=== PATIENT | male | born 1950 | race Hispanic/Latino ===

== ENCOUNTER → 2018-04-11 | Outpatient (CLI) | payer BC, OTHER | END | disposition home or self-care (01) | LOC: SHCH 14:31 | PROVIDERS: ATTEND Internal Medicine Cardiovascular Disease | DX: R60.0 Localized edema (principal) | CPT/HCPCS: 93306 ==

== ENCOUNTER → 2018-12-29 | Outpatient (CLI) | payer OTHER ==
[~2018-12-29] MED LIST: MULT-1258 PO
== END | disposition home or self-care (01) ==
LOC: SHCH 11:03
PROVIDERS: ATTEND Internal Medicine Cardiovascular Disease
DX: I70.213 Atherosclerosis of native arteries of extremities with intermittent claudication, bilateral legs (principal)
CPT/HCPCS: 93922

== ENCOUNTER → 2020-10-21 | Outpatient (CLI) | payer OTHER | END | disposition home or self-care (01) | LOC: SHCH 09:17 | PROVIDERS: ATTEND Internal Medicine Cardiovascular Disease | DX: I34.0 Nonrheumatic mitral (valve) insufficiency (principal); I25.2 Old myocardial infarction | CPT/HCPCS: 93306; 93356 ==

== ENCOUNTER 2020-12-18 12:45 | Inpatient (IN) | payer OTHER ==
[2020-12-12 15:07] LABS: BASOPHILS % (AUTO) 0.8 % (0.0-5.0); EOSINOPHILS % (AUTO) 1.9 % (0.0-8.0); HEMATOCRIT 44.3 % (42-54); LYMPHOCYTES % (AUTO) 27.9 % (21.0-51.0); MEAN CORPUSCULAR HGB CONC 32.7 g/dL (32.0-36.0); MEAN CORPUSCULAR VOLUME 97.8 fL (79-99); MONOCYTES % (AUTO) 8.4 % (3.0-13.0); NEUTROPHILS % (AUTO) 60.7 % (40.0-77.0); PLATELET COUNT (AUTO) 154 K/uL (130-400); RED BLOOD CELL COUNT(AUTO) 4.53 MIL/uL (4.50-6.20); RED CELL DISTRIBUTION WIDTH 13.1 % (11.0-15.5); WHITE BLOOD COUNT (AUTO) 9.4 K/uL (4.8-10.8)
[2020-12-12 15:14] LABS: APPEARANCE,URINE Clear (CLEAR); BILIRUBIN,URINE Negative (NEGATIVE); COLOR,URINE Yellow (YELLOW); GLUCOSE, URINE (UA) Negative (NEGATIVE); KETONES,URINE Negative (NEGATIVE); LEUKOCYTE ESTERASE ,URINE Negative (NEGATIVE); NITRATE,URINE Negative (NEGATIVE); OCCULT BLOOD,URINE Negative (NEGATIVE); PH,URINE 7.5 (5.0-8.0); PROTEIN,URINE Negative (NEGATIVE)
[2020-12-12 15:16] LABS: CREATININE 1.3 mg/dL (0.5-1.5); POTASSIUM 4.9 mmol/L (3.5-5.1)
[2020-12-12 15:19] LABS: INR 1.03 (0.85-1.15); PROTHROMBIN TIME 11.2 SEC (9.6-11.6)
[~2020-12-18] VITALS: Ht 180.3 cm; Wt 103.2 kg
[2020-12-18] VITALS (10 sets, daily range): BP systolic 111–152; BP diastolic 59–80
[~2020-12-18 12:45] MED LIST changes: +ASPI-1443 PO; +ATOR40TA71 PO; +CARV6.25 PO; +FLUT1BLS15 IH; +HYDR25TA PO; +LOSA100T58 PO; +METO-408 PO
[2020-12-18] MEDS ORDERED: 0.9%NACL 1000ML 1,000 ML IV ONE (14:11)
[2020-12-18] MEDS ORDERED: IOHEXOL-350 50ML VIAL IV ONE (14:42)
[2020-12-18] MEDS ORDERED: LIDOCAINE HCL 400MG/20ML VIAL ONE (14:42)
[2020-12-18] MEDS ORDERED: IOHEXOL 350 MG/ML 100ML INFUS..BTL IV ONE (14:42)
[2020-12-18] MEDS ORDERED: NITROGLYCERIN 2 MG VIAL IV ONE (14:42)
[2020-12-18] MEDS ORDERED: SODIUM BICARB 50MEQ 50ML VIAL 50 ML ONE (14:52)
[2020-12-18] MEDS ORDERED: FUROSEMIDE 20MG VIAL ONE (15:51)
[2020-12-18] MEDS ORDERED: ACETAMINOPHEN 325 MG TAB PO PRN ×2 (16:00)
[2020-12-18] MEDS ORDERED: NITROGLYCERIN 0.4 MG SL TAB SL PRN (16:00)
[2020-12-18] MEDS ORDERED: BUMETANIDE 2.5MG/10ML VIAL IV SCH (16:00)
[2020-12-18] MEDS: NITROGLYCERIN 1GM OINT 1 INCH/1GM TD SCH ×2 (16:00→23:43)
[2020-12-18] MEDS ORDERED: ONDANSETRON 4MG INJ IV PRN (16:00)
[2020-12-18 16:12] LABS: ABG BASE EXCESS 1.3 mmol/L (-2.0-3.0); ABG OXYGEN SATURATION 95.2 % (95.0-99.0); ABG PCO2 41 mmHg (35-48)
[2020-12-18 17:12] LABS: BASOPHILS % (AUTO) 0.7 % (0.0-5.0); EOSINOPHILS % (AUTO) 1.2 % (0.0-8.0); LYMPHOCYTES % (AUTO) 15.6 % (21.0-51.0); MEAN CORPUSCULAR HGB CONC 33.7 g/dL (32.0-36.0); MONOCYTES % (AUTO) 5.1 % (3.0-13.0); NEUTROPHILS % (AUTO) 76.9 % (40.0-77.0); PLATELET COUNT (AUTO) 157 K/uL (130-400); RED BLOOD CELL COUNT(AUTO) 4.84 MIL/uL (4.50-6.20); RED CELL DISTRIBUTION WIDTH 12.9 % (11.0-15.5); WHITE BLOOD COUNT (AUTO) 12.1 K/uL (4.8-10.8)
[2020-12-18 17:36] LABS: B-TYPE NATRIURETIC PEPTIDE 123 pg/mL (0-100)
[2020-12-18 17:44] LABS: ALBUMIN 4.1 g/dL (3.5-5.0); BILIRUBIN,TOTAL 0.8 mg/dL (0.2-1.0); CREATININE 1.2 mg/dL (0.5-1.5); POTASSIUM 4.2 mmol/L (3.5-5.1); THYROID STIMULATING HORMONE 1.52 uIU/mL (0.36-3.74)
[2020-12-18] MEDS ORDERED: BUMETANIDE IV SCH (18:30)
[2020-12-18] MEDS: FAMOTIDINE 20MG VIAL IV SCH (20:29)
[2020-12-18] MEDS ORDERED: METOPROLOL TARTRATE 25 MG TAB PO SCH (21:00)
[2020-12-19] VITALS: BP 128/66
[2020-12-19 00:19] LABS: APPEARANCE,URINE Clear (CLEAR); BILIRUBIN,URINE Negative (NEGATIVE); COLOR,URINE Yellow (YELLOW); GLUCOSE, URINE (UA) Negative (NEGATIVE); KETONES,URINE Negative (NEGATIVE); LEUKOCYTE ESTERASE ,URINE Trace (NEGATIVE); NITRATE,URINE Negative (NEGATIVE); OCCULT BLOOD,URINE Large (NEGATIVE); PROTEIN,URINE Trace mg/dL (NEGATIVE); UROBILINOGEN,URINE 0.2 mg/dL (0.2-1.0)
[2020-12-19 00:33] LABS: BACTERIA,URINE None Seen /HPF (None Seen); WBC,URINE 0-1 /HPF (0-1)
[2020-12-19 00:34] LABS: SQUAMOUS EPITHELIAL CELL,UR Rare /HPF (0-2)
[2020-12-19] MEDS ORDERED: PHARMACY COMMUNICATION MISC SCH ×2 (03:00)
[2020-12-19 04:00] VITALS: BP 98/64
[2020-12-19 07:53] VITALS: BP 106/63
[2020-12-19 07:53] LABS: CREATININE 1.7 mg/dL (0.5-1.5); POTASSIUM 4.1 mmol/L (3.5-5.1)
[2020-12-19] MEDS: NITROGLYCERIN 1GM OINT 1 INCH/1GM TD SCH ×2 (08:00→16:51)
[2020-12-19] MEDS ORDERED: HYDROCHLOROTHIAZIDE 25 MG TABLET PO SCH (09:00)
[2020-12-19] MEDS ORDERED: METOPROLOL SUCCINATE 50 MG TAB.SR.24H PO SCH (09:00)
[2020-12-19] MEDS: LOSARTAN 50 MG TABLET PO SCH (09:00)
[2020-12-19] MEDS: FAMOTIDINE 20MG VIAL IV SCH ×2 (09:06→19:29)
[2020-12-19] MEDS: ATORVASTATIN 40 MG TABLET PO SCH (09:14)
[2020-12-19] MEDS: ASPIRIN 81 MG EC TAB PO SCH (09:14)
[2020-12-19] MEDS: MULTIVITAMIN TABLET PO SCH (09:14)
[2020-12-19] MEDS: ENOXAPARIN SODIUM 40 MG/0.4 ML SYRINGE SQ SCH (09:17)
[2020-12-19] MEDS: CARVEDILOL 6.25 MG TABLET PO SCH ×2 (09:42→19:35)
[2020-12-19 11:38] VITALS: BP 102/54
[2020-12-19 15:51] VITALS: BP 110/56
[2020-12-19 19:00] VITALS: BP 114/62
[2020-12-20] VITALS (10 sets, daily range): BP systolic 108–142; BP diastolic 58–75
[2020-12-20] MEDS: NITROGLYCERIN 1GM OINT 1 INCH/1GM TD SCH ×4 (00:25→23:44)
[2020-12-20 04:36] LABS: INR 1.05 (0.85-1.15); PROTHROMBIN TIME 11.4 SEC (9.6-11.6)
[2020-12-20 04:37] LABS: PARTIAL THROMBOPLASTIN TIME 28.2 SEC (26.3-35.5)
[2020-12-20 04:42] LABS: CREATININE 2.2 mg/dL (0.5-1.5); POTASSIUM 3.8 mmol/L (3.5-5.1)
[2020-12-20] MEDS: ATORVASTATIN 40 MG TABLET PO SCH (08:54)
[2020-12-20] MEDS: CARVEDILOL 6.25 MG TABLET PO SCH ×2 (08:55→21:18)
[2020-12-20] MEDS: LOSARTAN 50 MG TABLET PO SCH (08:55)
[2020-12-20] MEDS: MULTIVITAMIN TABLET PO SCH (08:55)
[2020-12-20] MEDS: FLUTICASONE IH SCH (08:56)
[2020-12-20] MEDS: UMECLIDIN IH SCH (08:56)
[2020-12-20] MEDS: VILANTER IH SCH (08:56)
[2020-12-20] MEDS: [UNRECOGNIZED DRUG - OTHER] IH SCH (08:56)
[2020-12-20] MEDS: ASPIRIN 81 MG EC TAB PO SCH (08:56)
[2020-12-20] MEDS: ENOXAPARIN SODIUM 40 MG/0.4 ML SYRINGE SQ SCH (08:57)
[2020-12-20] MEDS: FAMOTIDINE 20MG VIAL IV SCH ×2 (08:57→19:59)
[2020-12-20] MEDS ORDERED: LIDOCAINE HCL 400MG/20ML VIAL ONE (17:04)
[2020-12-20] MEDS ORDERED: SODIUM BICARB 50MEQ 50ML VIAL 50 ML ONE (17:04)
[2020-12-20] MEDS ORDERED: NITROGLYCERIN 2 MG VIAL IV ONE (17:04)
[2020-12-20] MEDS ORDERED: FENTANYL CITRATE PF 50 MCG/1 ML 2ML VIAL ONE (17:04)
[2020-12-20] MEDS ORDERED: MIDAZOLAM HCL 1 MG/ML 2ML VIAL ONE (17:04)
[2020-12-20] MEDS ORDERED: 0.9% NACL 500ML IV.SOLN 500 ML IV SCH (18:30)
[2020-12-21] VITALS (7 sets, daily range): BP systolic 110–140; BP diastolic 57–80
[2020-12-21 06:09] LABS: POTASSIUM 4.1 mmol/L (3.5-5.1)
[2020-12-21] MEDS: NITROGLYCERIN 1GM OINT 1 INCH/1GM TD SCH ×2 (08:55→16:00)
[2020-12-21] MEDS: UMECLIDIN IH SCH (08:56)
[2020-12-21] MEDS: [UNRECOGNIZED DRUG - OTHER] IH SCH (08:56)
[2020-12-21] MEDS: FAMOTIDINE 20MG VIAL IV SCH ×2 (08:56→20:32)
[2020-12-21] MEDS: FLUTICASONE IH SCH (08:56)
[2020-12-21] MEDS: VILANTER IH SCH (08:56)
[2020-12-21] MEDS: ASPIRIN 81 MG EC TAB PO SCH (08:57)
[2020-12-21] MEDS: LOSARTAN 50 MG TABLET PO SCH (08:57)
[2020-12-21] MEDS: MULTIVITAMIN TABLET PO SCH (08:57)
[2020-12-21] MEDS: CARVEDILOL 6.25 MG TABLET PO SCH ×2 (08:58→20:32)
[2020-12-21] MEDS: ATORVASTATIN 40 MG TABLET PO SCH (08:58)
[2020-12-21] MEDS: ENOXAPARIN SODIUM 40 MG/0.4 ML SYRINGE SQ SCH (09:10)
[2020-12-21 16:48] LABS: BILIRUBIN,URINE Negative (NEGATIVE); COLOR,URINE Dark Yellow (YELLOW); GLUCOSE, URINE (UA) Negative (NEGATIVE); KETONES,URINE Trace mg/dL (NEGATIVE); LEUKOCYTE ESTERASE ,URINE Moderate (NEGATIVE); NITRATE,URINE Negative (NEGATIVE); OCCULT BLOOD,URINE Large (NEGATIVE); PROTEIN,URINE POS 1+ mg/dL (NEGATIVE)
[2020-12-21 16:49] LABS: APPEARANCE,URINE CLOUDY (CLEAR)
[2020-12-21 16:58] LABS: BACTERIA,URINE Few /HPF (None Seen); RBC,URINE 26-50 /HPF (0-1)
[2020-12-21 16:59] LABS: SQUAMOUS EPITHELIAL CELL,UR Few /HPF (0-2)
[2020-12-21 17:00] LABS: HYALINE CASTS, URINE 0-1 /LPF (0-1 /LPF)
[2020-12-21] MEDS: FUROSEMIDE 20 MG TABLET PO SCH (17:00)
[2020-12-21] MEDS ORDERED: CEFTRIAXONE 1G VIAL ONE (18:18)
[2020-12-21] MEDS: CEFTRIAXONE 1G VIAL IVP SCH (18:44)
[2020-12-22] MEDS: NITROGLYCERIN 1GM OINT 1 INCH/1GM TD SCH ×4 (00:19→23:01)
[2020-12-22 04:53] VITALS: BP 111/52
[2020-12-22 05:22] LABS: POTASSIUM 3.7 mmol/L (3.5-5.1)
[2020-12-22 08:00] VITALS: BP 104/64
[2020-12-22] MEDS: FAMOTIDINE 20MG VIAL IV SCH ×2 (09:11→20:06)
[2020-12-22] MEDS: ENOXAPARIN SODIUM 40 MG/0.4 ML SYRINGE SQ SCH (09:11)
[2020-12-22] MEDS: LOSARTAN 50 MG TABLET PO SCH (09:13)
[2020-12-22] MEDS: FUROSEMIDE 20 MG TABLET PO SCH (09:14)
[2020-12-22] MEDS: MULTIVITAMIN TABLET PO SCH (09:14)
[2020-12-22] MEDS: ASPIRIN 81 MG EC TAB PO SCH (09:14)
[2020-12-22] MEDS: ATORVASTATIN 40 MG TABLET PO SCH (09:14)
[2020-12-22] MEDS: CARVEDILOL 6.25 MG TABLET PO SCH ×2 (09:15→20:07)
[2020-12-22] MEDS: NEOMY SULF/BACITRA/POLYMYXIN B 1 EACH PACKET TP SCH (09:17)
[2020-12-22] MEDS: VILANTER IH SCH (09:20)
[2020-12-22] MEDS: UMECLIDIN IH SCH (09:20)
[2020-12-22] MEDS: FLUTICASONE IH SCH (09:20)
[2020-12-22] MEDS: [UNRECOGNIZED DRUG - OTHER] IH SCH (09:20)
[2020-12-22 12:00] VITALS: BP 120/61
[2020-12-22 16:00] VITALS: BP 137/73
[2020-12-22 19:48] VITALS: BP 110/49
[2020-12-22] MEDS: CEFTRIAXONE 1G VIAL IVP SCH (20:06)
[2020-12-22] MEDS ORDERED: BISACODYL 10 MG SUPP.RECT RC ONE ×2 (23:24→23:30)
[2020-12-23] VITALS (8 sets, daily range): BP systolic 105–131; BP diastolic 54–77
[2020-12-23 04:11] LABS: BASOPHILS % (AUTO) 0.4 % (0.0-5.0); EOSINOPHILS % (AUTO) 0.4 % (0.0-8.0); HEMATOCRIT 39.7 % (42-54); MEAN CORPUSCULAR HEMOGLOBIN 31.7 pg (27.0-33.0); MEAN CORPUSCULAR HGB CONC 33.5 g/dL (32.0-36.0); MEAN CORPUSCULAR VOLUME 94.7 fL (79-99); NEUTROPHILS % (AUTO) 77.6 % (40.0-77.0); PLATELET COUNT (AUTO) 118 K/uL (130-400); RED BLOOD CELL COUNT(AUTO) 4.19 MIL/uL (4.50-6.20); RED CELL DISTRIBUTION WIDTH 12.6 % (11.0-15.5); WHITE BLOOD COUNT (AUTO) 15.7 K/uL (4.8-10.8)
[2020-12-23 04:30] LABS: CREATININE 1.7 mg/dL (0.5-1.5); POTASSIUM 3.6 mmol/L (3.5-5.1)
[2020-12-23] MEDS: FAMOTIDINE 20MG VIAL IV SCH ×2 (09:28→19:52)
[2020-12-23] MEDS: ENOXAPARIN SODIUM 40 MG/0.4 ML SYRINGE SQ SCH (09:28)
[2020-12-23] MEDS: ASPIRIN 81 MG EC TAB PO SCH (09:33)
[2020-12-23] MEDS: FUROSEMIDE 20 MG TABLET PO SCH (09:34)
[2020-12-23] MEDS: MULTIVITAMIN TABLET PO SCH (09:34)
[2020-12-23] MEDS: LOSARTAN 50 MG TABLET PO SCH (09:35)
[2020-12-23] MEDS: ATORVASTATIN 40 MG TABLET PO SCH (09:35)
[2020-12-23] MEDS: CARVEDILOL 6.25 MG TABLET PO SCH ×2 (09:37→19:53)
[2020-12-23] MEDS: UMECLIDIN IH SCH (09:53)
[2020-12-23] MEDS: VILANTER IH SCH (09:53)
[2020-12-23] MEDS: [UNRECOGNIZED DRUG - OTHER] IH SCH (09:53)
[2020-12-23] MEDS: FLUTICASONE IH SCH (09:53)
[2020-12-23] MEDS: NEOMY SULF/BACITRA/POLYMYXIN B 1 EACH PACKET TP SCH (09:54)
[2020-12-23] MEDS: CEFTRIAXONE 1G VIAL IVP SCH (19:53)
[2020-12-23] MEDS ORDERED: SENNOSIDES 8.6 MG TABLET ONE (20:07)
[2020-12-23] MEDS ORDERED: SENNOSIDES 8.6 MG TABLET PO PRN (20:30)
[2020-12-24 03:41] LABS: BASOPHILS % (AUTO) 0.5 % (0.0-5.0); EOSINOPHILS % (AUTO) 2.2 % (0.0-8.0); HEMATOCRIT 37.4 % (42-54); LYMPHOCYTES % (AUTO) 19.1 % (21.0-51.0); MEAN CORPUSCULAR HEMOGLOBIN 32.2 pg (27.0-33.0); MEAN CORPUSCULAR VOLUME 94.9 fL (79-99); MONOCYTES % (AUTO) 9.2 % (3.0-13.0); NEUTROPHILS % (AUTO) 68.5 % (40.0-77.0); PLATELET COUNT (AUTO) 124 K/uL (130-400); RED BLOOD CELL COUNT(AUTO) 3.94 MIL/uL (4.50-6.20); RED CELL DISTRIBUTION WIDTH 12.5 % (11.0-15.5); WHITE BLOOD COUNT (AUTO) 10.7 K/uL (4.8-10.8)
[2020-12-24 03:42] VITALS: BP 113/63
[2020-12-24 03:57] LABS: CREATININE 1.7 mg/dL (0.5-1.5); POTASSIUM 3.8 mmol/L (3.5-5.1)
[2020-12-24 07:30] VITALS: BP 114/69
[2020-12-24] MEDS: ENOXAPARIN SODIUM 40 MG/0.4 ML SYRINGE SQ SCH (09:08)
[2020-12-24] MEDS: MULTIVITAMIN TABLET PO SCH (09:08)
[2020-12-24] MEDS: FAMOTIDINE 20MG VIAL IV SCH ×2 (09:08→21:36)
[2020-12-24] MEDS: ATORVASTATIN 40 MG TABLET PO SCH (09:08)
[2020-12-24] MEDS: ASPIRIN 81 MG EC TAB PO SCH (09:08)
[2020-12-24] MEDS: FUROSEMIDE 20 MG TABLET PO SCH (09:09)
[2020-12-24] MEDS: CARVEDILOL 6.25 MG TABLET PO SCH ×2 (09:09→21:36)
[2020-12-24] MEDS: LOSARTAN 50 MG TABLET PO SCH (09:09)
[2020-12-24] MEDS: NEOMY SULF/BACITRA/POLYMYXIN B 1 EACH PACKET TP SCH (09:10)
[2020-12-24] MEDS ORDERED: FURO20TA6 PO (09:11)
[2020-12-24] MEDS ORDERED: CEFT1VIA14 IVP (09:11)
[2020-12-24] MEDS ORDERED: LOSA50TA2 PO (09:11)
[2020-12-24] MEDS: VILANTER IH SCH (09:17)
[2020-12-24] MEDS: [UNRECOGNIZED DRUG - OTHER] IH SCH (09:17)
[2020-12-24] MEDS: UMECLIDIN IH SCH (09:17)
[2020-12-24] MEDS: FLUTICASONE IH SCH (09:17)
[2020-12-24 11:00] VITALS: BP 117/58
[2020-12-24 15:30] VITALS: BP 120/61
[2020-12-24] MEDS ORDERED: IPRATROPIUM/ALBUTEROL SULFATE 3 ML SOLUTION IH PRN (16:30)
[2020-12-24 20:32] VITALS: BP 116/69
[2020-12-24 21:36] VITALS: BP 116/69
[2020-12-24] MEDS: CEFTRIAXONE 1G VIAL IVP SCH (21:36)
== END 2020-12-24 22:12 | DRG 286 ==
LOC: DAH 12:45 → DAHIP 12:46 → DAH 12:46 → 4BH 18:12
PROVIDERS: ADMIT Internal Medicine; ATTEND Internal Medicine
PROC: 5A09357 Assistance with Respiratory Ventilation, Less than 24 Consecutive Hours, Continuous Positive Airway Pressure (ICD-10-PCS; 2020-12-18)
PROC: 5A09357 Assistance with Respiratory Ventilation, Less than 24 Consecutive Hours, Continuous Positive Airway Pressure (ICD-10-PCS; 2020-12-19)
PROC: 4A023N6 Measurement of Cardiac Sampling and Pressure, Right Heart, Percutaneous Approach (ICD-10-PCS; principal; 2020-12-20)
PROC: 5A09357 Assistance with Respiratory Ventilation, Less than 24 Consecutive Hours, Continuous Positive Airway Pressure (ICD-10-PCS; 2020-12-20)
PROC: 5A09357 Assistance with Respiratory Ventilation, Less than 24 Consecutive Hours, Continuous Positive Airway Pressure (ICD-10-PCS; 2020-12-21)
PROC: 5A09357 Assistance with Respiratory Ventilation, Less than 24 Consecutive Hours, Continuous Positive Airway Pressure (ICD-10-PCS; 2020-12-22)
PROC: 5A09357 Assistance with Respiratory Ventilation, Less than 24 Consecutive Hours, Continuous Positive Airway Pressure (ICD-10-PCS; 2020-12-23)
PROC: 5A09357 Assistance with Respiratory Ventilation, Less than 24 Consecutive Hours, Continuous Positive Airway Pressure (ICD-10-PCS; 2020-12-24)
DX: I13.0 Hypertensive heart and chronic kidney disease with heart failure and stage 1 through stage 4 chronic kidney disease, or unspecified chronic kidney disease (principal); I50.33 Acute on chronic diastolic (congestive) heart failure; N17.0 Acute kidney failure with tubular necrosis; N39.0 Urinary tract infection, site not specified; E78.5 Hyperlipidemia, unspecified; N18.9 Chronic kidney disease, unspecified; J44.9 Chronic obstructive pulmonary disease, unspecified; I25.10 Atherosclerotic heart disease of native coronary artery without angina pectoris; E86.0 Dehydration; Z95.1 Presence of aortocoronary bypass graft; I25.2 Old myocardial infarction
CPT/HCPCS: 36415; 36600; 71045; 71046; 80048; 80053; 81001; 81003; 82550; 82803; 83036; 83874; 83880; 84145; 84443; 84484; 85025; 85378; 85610; 85730; 87040; 87071; 87077; 87088; 87186; 87205; 87804; 92610; 93005; 93451; 94640; 97039; A4606; C1894; G0378; J0696; J1644; J1650; J1940; J2250; J2405; J3010; J3490; J7030; J7040; Q9967

== ENCOUNTER 2021-01-29 11:16 | Observation (INO) | payer OTHER ==
[2021-01-28 09:15] LABS: BASOPHILS % (AUTO) 0.7 % (0.0-5.0); EOSINOPHILS % (AUTO) 1.2 % (0.0-8.0); HEMATOCRIT 41.5 % (42-54); LYMPHOCYTES % (AUTO) 17.6 % (21.0-51.0); MEAN CORPUSCULAR HEMOGLOBIN 31.7 pg (27.0-33.0); MEAN CORPUSCULAR HGB CONC 33.3 g/dL (32.0-36.0); MEAN CORPUSCULAR VOLUME 95.4 fL (79-99); MONOCYTES % (AUTO) 6.4 % (3.0-13.0); NEUTROPHILS % (AUTO) 73.6 % (40.0-77.0); PLATELET COUNT (AUTO) 160 K/uL (130-400); RED BLOOD CELL COUNT(AUTO) 4.35 MIL/uL (4.50-6.20); WHITE BLOOD COUNT (AUTO) 10.6 K/uL (4.8-10.8)
[2021-01-28 09:20] LABS: APPEARANCE,URINE Clear (CLEAR); BILIRUBIN,URINE Negative (NEGATIVE); COLOR,URINE Yellow (YELLOW); GLUCOSE, URINE (UA) Negative (NEGATIVE); KETONES,URINE Negative (NEGATIVE); LEUKOCYTE ESTERASE ,URINE Negative (NEGATIVE); NITRATE,URINE Negative (NEGATIVE); OCCULT BLOOD,URINE Negative (NEGATIVE); PROTEIN,URINE Negative (NEGATIVE)
[2021-01-28 09:24] LABS: CREATININE 1.2 mg/dL (0.5-1.5); POTASSIUM 4.9 mmol/L (3.5-5.1)
[2021-01-28 09:25] LABS: INR 1.05 (0.85-1.15); PROTHROMBIN TIME 11.4 SEC (9.6-11.6)
[2021-01-28 09:26] LABS: PARTIAL THROMBOPLASTIN TIME 28.9 SEC (26.3-35.5)
[2021-01-28 15:41] VITALS: BP 150/78
[~2021-01-29] VITALS: Ht 180.3 cm; Wt 99.8 kg
[2021-01-29] VITALS (7 sets, daily range): BP systolic 122–157; BP diastolic 63–88
[~2021-01-29 11:16] MED LIST changes: -FLUT1BLS15 IH; +FURO20TA6 PO; -HYDR25TA PO; -LOSA100T58 PO; +LOSA50TA2 PO; -METO-408 PO
[2021-01-29] MEDS ORDERED: 0.9%NACL 1000ML 1,000 ML IV ONE (11:22)
[2021-01-29] MEDS ORDERED: SODIUM BICARB 50MEQ 50ML VIAL 50 ML ONE (19:06)
[2021-01-29] MEDS ORDERED: NICARDIPINE 25MG INJ IV ONE (19:06)
[2021-01-29] MEDS ORDERED: IOHEXOL 350 MG/ML 100ML INFUS..BTL IV ONE (19:06)
[2021-01-29] MEDS ORDERED: NITROGLYCERIN 2 MG VIAL IV ONE (19:06)
[2021-01-29] MEDS ORDERED: BIVALIRUDIN 250 MG/VIAL IV ONE (19:06)
[2021-01-29] MEDS ORDERED: IOHEXOL-350 50ML VIAL IV ONE (19:06)
[2021-01-29] MEDS ORDERED: HEPARIN 10,000 UNIT/10ML (1,000 UNIT/ML) VIAL ONE (19:06)
[2021-01-29] MEDS ORDERED: LIDOCAINE HCL 400MG/20ML VIAL ONE (19:07)
[2021-01-29] MEDS ORDERED: MIDAZOLAM HCL 1 MG/ML 2ML VIAL ONE (19:45)
[2021-01-29] MEDS ORDERED: FENTANYL CITRATE PF 50 MCG/1 ML 2ML VIAL ONE (19:46)
[2021-01-29] MEDS ORDERED: LABETALOL 20MG VIAL IV ONE (20:30)
[2021-01-29] MEDS ORDERED: ONDANSETRON 4MG INJ ONE (20:42)
[2021-01-29] MEDS ORDERED: 0.9%NACL 1000ML 1,000 ML IV SCH (21:00)
[2021-01-29] MEDS: CARVEDILOL 6.25 MG TABLET PO SCH (22:31)
[2021-01-30 00:15] VITALS: BP 132/76
[2021-01-30 04:11] VITALS: BP 138/74
[2021-01-30 04:16] LABS: HEMATOCRIT 40.8 % (42-54); MEAN CORPUSCULAR HEMOGLOBIN 31.4 pg (27.0-33.0); MEAN CORPUSCULAR HGB CONC 33.6 g/dL (32.0-36.0); MEAN CORPUSCULAR VOLUME 93.4 fL (79-99); RED BLOOD CELL COUNT(AUTO) 4.37 MIL/uL (4.50-6.20); RED CELL DISTRIBUTION WIDTH 13.1 % (11.0-15.5); WHITE BLOOD COUNT (AUTO) 11.4 K/uL (4.8-10.8)
[2021-01-30 04:24] LABS: CREATININE 1.3 mg/dL (0.5-1.5)
[2021-01-30 08:08] VITALS: BP 140/79
[2021-01-30 08:19] VITALS: BP 140/79
[2021-01-30] MEDS: CARVEDILOL 6.25 MG TABLET PO SCH (08:19)
[2021-01-30] MEDS ORDERED: FUROSEMIDE 20 MG TABLET PO SCH (09:00)
[2021-01-30] MEDS ORDERED: ASPIRIN 81 MG EC TAB PO SCH (09:00)
[2021-01-30] MEDS ORDERED: MULTIVITAMIN TABLET PO SCH (09:00)
[2021-01-30] MEDS ORDERED: ATORVASTATIN 40 MG TABLET PO SCH (09:00)
[2021-01-30] MEDS ORDERED: LOSARTAN 50 MG TABLET PO SCH (09:00)
== END 2021-01-30 09:40 | disposition home or self-care (01) ==
LOC: DAH 11:16 → 4DH 11:17
PROVIDERS: ADMIT Internal Medicine Cardiovascular Disease; ATTEND Internal Medicine Cardiovascular Disease
DX: I25.10 Atherosclerotic heart disease of native coronary artery without angina pectoris (principal); I11.0 Hypertensive heart disease with heart failure; I50.32 Chronic diastolic (congestive) heart failure; J44.9 Chronic obstructive pulmonary disease, unspecified; Z87.891 Personal history of nicotine dependence; Z79.899 Other long term (current) drug therapy
CPT/HCPCS: 36415 ×2; 71045; 80048 ×2; 81003; 85025; 85027; 85610; 85730; 93005; 93458; A4215; A4216; A4221; A4222; A4223 ×3; A4606; A4663; C1760; C1769 ×2; C1894 ×3; G0378 ×13; J1644 ×2; J2405; J3010; J3490 ×5; J7030; Q9965 ×2; Q9967 ×2; 99156; 99157; J0583; J2250

== ENCOUNTER 2021-06-12 19:24 | Inpatient (IN) | payer OTHER ==
[2021-06-12 19:50] LABS: BASOPHILS % (AUTO) 0.4 % (0.0-5.0); EOSINOPHILS % (AUTO) 0.1 % (0.0-8.0); HEMATOCRIT 44.2 % (42-54); LYMPHOCYTES % (AUTO) 8.5 % (21.0-51.0); MEAN CORPUSCULAR HEMOGLOBIN 30.6 pg (27.0-33.0); MEAN CORPUSCULAR HGB CONC 33.5 g/dL (32.0-36.0); MEAN CORPUSCULAR VOLUME 91.5 fL (79-99); MONOCYTES % (AUTO) 4.7 % (3.0-13.0); NEUTROPHILS % (AUTO) 85.8 % (40.0-77.0); PLATELET COUNT (AUTO) 146 K/uL (130-400); RED BLOOD CELL COUNT(AUTO) 4.83 MIL/uL (4.50-6.20); RED CELL DISTRIBUTION WIDTH 13.1 % (11.0-15.5); WHITE BLOOD COUNT (AUTO) 9.6 K/uL (4.8-10.8)
[2021-06-12 19:59] LABS: CREATININE 1.3 mg/dL (0.5-1.5); POTASSIUM 4.7 mmol/L (3.5-5.1)
[2021-06-12 20:09] LABS: ALBUMIN 3.4 g/dL (3.5-5.0); BILIRUBIN,TOTAL 0.7 mg/dL (0.2-1.0); TOTAL PROTEIN, SERUM 7.3 g/dL (6.0-8.3)
[2021-06-12] MEDS ORDERED: ONDANSETRON 4MG INJ ONE (20:43)
[2021-06-12 21:04] LABS: ABG BASE EXCESS -2.2 mmol/L (-2.0-3.0); ABG HCO3 22.2 mmol/L (21.0-28.0); ABG OXYGEN SATURATION 94.6 % (95.0-99.0); ABG PCO2 37 mmHg (35-48)
[2021-06-12 21:13] LABS: MAGNESIUM 1.9 mg/dL (1.80-2.40); THYROID STIMULATING HORMONE 0.88 uIU/mL (0.36-3.74)
[2021-06-13 01:15] LABS: APPEARANCE,URINE Clear (CLEAR); BILIRUBIN,URINE Small (NEGATIVE); COLOR,URINE Dark Yellow (YELLOW); GLUCOSE, URINE (UA) Negative (NEGATIVE); KETONES,URINE Trace mg/dL (NEGATIVE); LEUKOCYTE ESTERASE ,URINE Trace (NEGATIVE); NITRATE,URINE Negative (NEGATIVE); OCCULT BLOOD,URINE Negative (NEGATIVE); PH,URINE 5.5 (5.0-8.0); PROTEIN,URINE POS 2+ mg/dL (NEGATIVE)
[2021-06-13 01:23] LABS: AMORPHOUS SEDIMENT,UR Few /LPF (None Seen); BACTERIA,URINE None Seen /HPF (None Seen); MUCUS,URINE Many LPF (None Seen); RBC,URINE None Seen /HPF (0-1); SQUAMOUS EPITHELIAL CELL,UR Moderate /HPF (0-2)
[2021-06-13 05:59] LABS: BASOPHILS % (AUTO) 0.3 % (0.0-5.0); EOSINOPHILS % (AUTO) 0.4 % (0.0-8.0); HEMATOCRIT 42.4 % (42-54); LYMPHOCYTES % (AUTO) 18.4 % (21.0-51.0); MEAN CORPUSCULAR HEMOGLOBIN 31.3 pg (27.0-33.0); MEAN CORPUSCULAR HGB CONC 34.2 g/dL (32.0-36.0); MEAN CORPUSCULAR VOLUME 91.4 fL (79-99); MONOCYTES % (AUTO) 7.8 % (3.0-13.0); NEUTROPHILS % (AUTO) 72.7 % (40.0-77.0); PLATELET COUNT (AUTO) 142 K/uL (130-400); RED BLOOD CELL COUNT(AUTO) 4.64 MIL/uL (4.50-6.20); RED CELL DISTRIBUTION WIDTH 13.2 % (11.0-15.5); WHITE BLOOD COUNT (AUTO) 7.3 K/uL (4.8-10.8)
[2021-06-13 06:04] LABS: CREATININE 1.3 mg/dL (0.5-1.5); MAGNESIUM 2.2 mg/dL (1.80-2.40); POTASSIUM 4.4 mmol/L (3.5-5.1)
[2021-06-13 06:10] LABS: HEMOGLOBIN A1C 5.3 % (4.0-6.0)
[2021-06-13] MEDS ORDERED: FOLI0.4T6 PO (09:19)
[2021-06-13 12:00] VITALS: BP 132/75
[2021-06-13] MEDS ORDERED: ONDANSETRON 4MG INJ IVP PRN (13:30)
[2021-06-13] MEDS: FOLIC ACID 1 MG TABLET PO SCH (15:00)
[2021-06-13] MEDS: THIAMINE HCL 100 MG/ML 2ML VIAL IVP SCH (15:00)
[2021-06-13 16:00] VITALS: BP 129/71
[2021-06-14 05:05] LABS: HEMATOCRIT 41.5 % (42-54); MEAN CORPUSCULAR HEMOGLOBIN 30.9 pg (27.0-33.0); MEAN CORPUSCULAR HGB CONC 32.8 g/dL (32.0-36.0); MEAN CORPUSCULAR VOLUME 94.3 fL (79-99); RED BLOOD CELL COUNT(AUTO) 4.4 MIL/uL (4.50-6.20); RED CELL DISTRIBUTION WIDTH 13.1 % (11.0-15.5); WHITE BLOOD COUNT (AUTO) 9.1 K/uL (4.8-10.8)
[2021-06-14 05:15] LABS: CREATININE 1.5 mg/dL (0.5-1.5); MAGNESIUM 2.3 mg/dL (1.80-2.40); POTASSIUM 4.4 mmol/L (3.5-5.1)
[2021-06-14 05:16] VITALS: BP 157/75
[2021-06-14 08:00] VITALS: BP 121/73
[2021-06-14] MEDS: THIAMINE HCL 100 MG/ML 2ML VIAL IVP SCH (09:47)
[2021-06-14] MEDS: FOLIC ACID 1 MG TABLET PO SCH (09:48)
[2021-06-14 12:00] VITALS: BP 123/63
[2021-06-14 16:00] VITALS: BP 148/75
== END 2021-06-14 18:50 | disposition short-term general hospital (02) | DRG 948 ==
LOC: EDH 19:24 → EDHIP 06-13 01:19 → 3BH 06-13 12:36
PROVIDERS: ADMIT Internal Medicine Infectious Disease; ATTEND Internal Medicine Infectious Disease
DX: R53.1 Weakness (principal); I50.32 Chronic diastolic (congestive) heart failure; Z20.822 Contact with and (suspected) exposure to COVID-19; Z95.5 Presence of coronary angioplasty implant and graft; J44.9 Chronic obstructive pulmonary disease, unspecified; G47.33 Obstructive sleep apnea (adult) (pediatric); I25.2 Old myocardial infarction; I25.10 Atherosclerotic heart disease of native coronary artery without angina pectoris; E78.5 Hyperlipidemia, unspecified; E66.01 Morbid (severe) obesity due to excess calories; I11.0 Hypertensive heart disease with heart failure; R29.6 Repeated falls; R32 Unspecified urinary incontinence; E11.9 Type 2 diabetes mellitus without complications; Z87.891 Personal history of nicotine dependence; R26.9 Unspecified abnormalities of gait and mobility
CPT/HCPCS: 36415; 36600; 70450; 71045; 72131; 80048; 80053; 81001; 82140; 82550; 82607; 82803; 83036; 83735; 84443; 84484; 85025; 85027; 86592; 87635; 87804; 93005; 97039; G0378; J2405; J3411

== ENCOUNTER → 2022-02-12 | Outpatient (CLI) | payer OTHER ==
[~2022-02-12] MED LIST changes: -ATOR40TA71 PO; +FOLI0.4T6 PO; -FURO20TA6 PO; -LOSA50TA2 PO
== END | disposition home or self-care (01) ==
LOC: SHCH 14:26
PROVIDERS: ATTEND Internal Medicine Cardiovascular Disease
DX: I08.1 Rheumatic disorders of both mitral and tricuspid valves (principal); R01.1 Cardiac murmur, unspecified; I25.10 Atherosclerotic heart disease of native coronary artery without angina pectoris
CPT/HCPCS: 93306

== ENCOUNTER → 2022-09-29 | Outpatient (CLI) | payer OTHER | END | disposition home or self-care (01) | LOC: RAH 13:16 | PROVIDERS: ATTEND Internal Medicine | DX: G31.9 Degenerative disease of nervous system, unspecified (principal); R90.82 White matter disease, unspecified; R26.81 Unsteadiness on feet; R47.01 Aphasia; R29.6 Repeated falls | CPT/HCPCS: 70450 ==

== ENCOUNTER → 2022-12-17 | Outpatient (CLI) | payer OTHER ==
[2022-12-17 12:49] LABS: ALBUMIN 3.6 g/dL (3.5-5.0); BILIRUBIN,TOTAL 0.5 mg/dL (0.2-1.0); CREATININE 1.4 mg/dL (0.5-1.5); POTASSIUM 4.6 mmol/L (3.5-5.1); TOTAL PROTEIN, SERUM 7.5 g/dL (6.0-8.3)
== END | disposition home or self-care (01) ==
LOC: LAB 08:18
PROVIDERS: ATTEND Internal Medicine Cardiovascular Disease
DX: I25.10 Atherosclerotic heart disease of native coronary artery without angina pectoris (principal)
CPT/HCPCS: 36415; 80053; 80061; 83880

== ENCOUNTER → 2022-12-24 | Outpatient (CLI) | payer OTHER ==
[2022-12-24 16:28] LABS: CREATININE 1.4 mg/dL (0.5-1.5); POTASSIUM 4.3 mmol/L (3.5-5.1)
== END | disposition home or self-care (01) ==
LOC: LAB 15:00
PROVIDERS: ATTEND Internal Medicine Cardiovascular Disease
DX: I25.10 Atherosclerotic heart disease of native coronary artery without angina pectoris (principal)
CPT/HCPCS: 36415; 80048; 83880

== ENCOUNTER → 2022-12-31 | Outpatient (CLI) | payer OTHER | END | disposition home or self-care (01) | LOC: RAH 11:40 | PROVIDERS: ATTEND Internal Medicine Cardiovascular Disease | DX: I25.10 Atherosclerotic heart disease of native coronary artery without angina pectoris (principal) | CPT/HCPCS: 71046 ==

== ENCOUNTER 2023-02-13 19:29 | Inpatient (IN) | payer OTHER ==
[~2023-02-13] VITALS: Ht 180.3 cm; Wt 115.7 kg
[2023-02-13 19:59] LABS: BASOPHILS # (AUTO) 0.03 K/uL (0.00-0.20); BASOPHILS % (AUTO) 0.2 % (0.0-5.0); HEMATOCRIT 41.4 % (42-54); IMMATURE GRANULOCYTE ABSOLUTE 0.04 K/uL (0-1); MEAN CORPUSCULAR HEMOGLOBIN 31.7 pg (27.0-33.0); MEAN CORPUSCULAR HGB CONC 34.3 g/dL (32.0-36.0); MEAN CORPUSCULAR VOLUME 92.4 fL (79-99); MONOCYTES # (AUTO) 0.7 K/uL (0.1-1.0); MONOCYTES % (AUTO) 5.8 % (3.0-13.0); NEUTROPHILS # (AUTO) 10.8 K/uL (1.8-7.7); NEUTROPHILS % (AUTO) 85.7 % (40.0-77.0); PLATELET COUNT (AUTO) 176 K/uL (130-400); RED BLOOD CELL COUNT(AUTO) 4.48 MIL/uL (4.50-6.20); RED CELL DISTRIBUTION WIDTH 13.2 % (11.0-15.5); WHITE BLOOD COUNT (AUTO) 12.6 K/uL (4.8-10.8)
[2023-02-13] MEDS ORDERED: IPRATROPIUM/ALBUTEROL SULFATE 3 ML SOLUTION IH ONE (20:00)
[2023-02-13 20:08] LABS: ABG BASE EXCESS 1.5 mmol/L (-2.0-3.0); ABG HCO3 24.9 mmol/L (21.0-28.0); ABG OXYGEN SATURATION 92.8 % (95.0-99.0); ABG PCO2 36 mmHg (35-48); ABG PH 7.462 (7.35-7.450); CARBON MONOXIDE 0.9; HHb 7.1; PO2, ARTERIAL BG 60.9 mmHg (83.0-108.0)
[2023-02-13 20:10] VITALS: PULSE 86; RESP 20
[2023-02-13 20:26] LABS: CREATININE 1.7 mg/dL (0.5-1.5); POTASSIUM 4.2 mmol/L (3.5-5.1)
[2023-02-13 20:43] LABS: ALBUMIN 3.3 g/dL (3.5-5.0); BILIRUBIN,TOTAL 0.6 mg/dL (0.2-1.0); TOTAL PROTEIN, SERUM 7.7 g/dL (6.0-8.3)
[2023-02-13 20:53] LABS: INFLUENZA TYPE A Negative For Type A (NEGATIVE); INFLUENZA TYPE B Negative For Type B (NEGATIVE)
[2023-02-13 21:14] LABS: SARS-CoV-2, RNA, NAAT POSITIVE SARS CoV-2 (NEGATIVE)
[2023-02-14] VITALS (8 sets, daily range): BP systolic 116–155; BP diastolic 65–80; PULSE 68–75; RESP 18–21; O2SAT 98–100
[2023-02-14] MEDS ORDERED: ACETAMINOPHEN 325 MG TAB PO PRN (00:30)
[2023-02-14] MEDS: DOXYCYCLINE HYCLATE 100 MG TABLET PO SCH ×3 (00:52→19:59)
[2023-02-14] MEDS: SOLU-MEDROL 40MG VIAL IVP SCH ×2 (00:52→08:15)
[2023-02-14] MEDS: ENOXAPARIN SODIUM 30 MG/0.3 ML SQ SCH ×2 (00:52→08:15)
[2023-02-14] MEDS ORDERED: CEFTRIAXONE 1G VIAL IVPB ONE (01:00)
[2023-02-14] MEDS ORDERED: LOSA50TA64 PO (01:41)
[2023-02-14] MEDS ORDERED: FURO20TA4 PO (01:41)
[2023-02-14 04:37] LABS: BASOPHILS # (AUTO) 0.02 K/uL (0.00-0.20); BASOPHILS % (AUTO) 0.2 % (0.0-5.0); EOSINOPHILS # (AUTO) 0.01 K/uL (0.00-0.70); EOSINOPHILS % (AUTO) 0.1 % (0.0-8.0); IMMATURE GRANULOCYTE ABSOLUTE 0.06 K/uL (0-1); LYMPHOCYTES % (AUTO) 8.9 % (21.0-51.0); MEAN CORPUSCULAR HEMOGLOBIN 31.8 pg (27.0-33.0); MEAN CORPUSCULAR HGB CONC 34.1 g/dL (32.0-36.0); MEAN CORPUSCULAR VOLUME 93.2 fL (79-99); MONOCYTES # (AUTO) 0.5 K/uL (0.1-1.0); MONOCYTES % (AUTO) 4.4 % (3.0-13.0); NEUTROPHILS # (AUTO) 9.8 K/uL (1.8-7.7); NEUTROPHILS % (AUTO) 85.9 % (40.0-77.0); PLATELET COUNT (AUTO) 168 K/uL (130-400); RED CELL DISTRIBUTION WIDTH 13.3 % (11.0-15.5); WHITE BLOOD COUNT (AUTO) 11.4 K/uL (4.8-10.8)
[2023-02-14 04:54] LABS: ALBUMIN 3.1 g/dL (3.5-5.0); BILIRUBIN,TOTAL 0.5 mg/dL (0.2-1.0); CREATININE 1.3 mg/dL (0.5-1.5); MAGNESIUM 2.5 mg/dL (1.80-2.40); POTASSIUM 4.6 mmol/L (3.5-5.1); TOTAL PROTEIN, SERUM 7.5 g/dL (6.0-8.3)
[2023-02-14] MEDS: ASPIRIN 81 MG EC TAB PO SCH (16:46)
[2023-02-14] MEDS ORDERED: NON-FORMULARY MEDICATION 1 EACH (Multivits-Min/FA/Lycopene/Lut (Centrum Silver Tablet) 1 E PO SCH (17:00)
[2023-02-14] MEDS: CARVEDILOL 6.25 MG TABLET PO SCH (20:00)
[2023-02-15 03:00] VITALS: BP 117/72; PULSE 76; RESP 18
[2023-02-15] MEDS: SOLU-MEDROL 40MG VIAL IVP SCH (07:55)
[2023-02-15] MEDS: FUROSEMIDE 20 MG TABLET PO SCH (07:55)
[2023-02-15] MEDS: MULTIVITAMIN WITH MINERALS TABLET PO SCH (07:56)
[2023-02-15] MEDS: LOSARTAN 50 MG TABLET PO SCH (07:56)
[2023-02-15] MEDS: DOXYCYCLINE HYCLATE 100 MG TABLET PO SCH ×2 (07:56→21:01)
[2023-02-15] MEDS: CARVEDILOL 6.25 MG TABLET PO SCH ×2 (07:56→21:03)
[2023-02-15] MEDS: ENOXAPARIN SODIUM 30 MG/0.3 ML SQ SCH (07:57)
[2023-02-15 08:00] VITALS: BP 131/72; PULSE 65; RESP 20; O2SAT 97
[2023-02-15 12:00] VITALS: BP 122/69; PULSE 73; RESP 20
[2023-02-15] MEDS: POLYETHYLENE GLYCOL 3350 17 GM POWD.PACK PO SCH (12:16)
[2023-02-15 16:00] VITALS: BP 125/83; PULSE 82; RESP 22
[2023-02-15] MEDS: ASPIRIN 81 MG EC TAB PO SCH (16:08)
[2023-02-15 20:00] VITALS: BP 151/85; PULSE 70; RESP 21; O2SAT 97
[2023-02-16] VITALS: BP 112/64; PULSE 60; RESP 17
[2023-02-16 04:00] VITALS: BP 132/55; PULSE 61; RESP 20
[2023-02-16 04:56] LABS: HEMATOCRIT 42.4 % (42-54); MEAN CORPUSCULAR HEMOGLOBIN 32.3 pg (27.0-33.0); MEAN CORPUSCULAR HGB CONC 33.3 g/dL (32.0-36.0); MEAN CORPUSCULAR VOLUME 97.2 fL (79-99); RED BLOOD CELL COUNT(AUTO) 4.36 MIL/uL (4.50-6.20); RED CELL DISTRIBUTION WIDTH 13.2 % (11.0-15.5); WHITE BLOOD COUNT (AUTO) 9.3 K/uL (4.8-10.8)
[2023-02-16 05:00] LABS: CREATININE 1.4 mg/dL (0.5-1.5); MAGNESIUM 2.2 mg/dL (1.80-2.40); POTASSIUM 4.3 mmol/L (3.5-5.1)
[2023-02-16 08:00] VITALS: BP 133/60; PULSE 63; RESP 18; O2SAT 94
[2023-02-16] MEDS: DOXYCYCLINE HYCLATE 100 MG TABLET PO SCH ×2 (09:36→21:13)
[2023-02-16] MEDS: POLYETHYLENE GLYCOL 3350 17 GM POWD.PACK PO SCH (09:36)
[2023-02-16] MEDS: SOLU-MEDROL 40MG VIAL IVP SCH (09:36)
[2023-02-16] MEDS: FUROSEMIDE 20 MG TABLET PO SCH (09:37)
[2023-02-16] MEDS: LOSARTAN 50 MG TABLET PO SCH (09:37)
[2023-02-16] MEDS: CARVEDILOL 6.25 MG TABLET PO SCH ×2 (09:37→21:13)
[2023-02-16] MEDS: MULTIVITAMIN WITH MINERALS TABLET PO SCH (09:37)
[2023-02-16] MEDS: ENOXAPARIN SODIUM 30 MG/0.3 ML SQ SCH (09:38)
[2023-02-16 12:00] VITALS: BP 137/69; PULSE 76; RESP 20
[2023-02-16] MEDS ORDERED: LACTULOSE 20 GM/30 ML UDCUP PO PRN (13:30)
[2023-02-16 16:00] VITALS: BP 154/70; PULSE 71; RESP 18
[2023-02-16] MEDS: ASPIRIN 81 MG EC TAB PO SCH (16:55)
[2023-02-16] MEDS ORDERED: CEFTRIAXONE 1G VIAL IVPB SCH (19:00)
[2023-02-16 20:02] VITALS: BP 122/69; PULSE 70; RESP 20
[2023-02-16] MEDS: CEFTRIAXONE 1G VIAL IVPB SCH (21:13)
[2023-02-17] VITALS (8 sets, daily range): BP systolic 126–156; BP diastolic 72–85; PULSE 58–71; RESP 20–22; O2SAT 95–96
[2023-02-17 05:26] LABS: HEMATOCRIT 42.1 % (42-54); MEAN CORPUSCULAR HEMOGLOBIN 32.1 pg (27.0-33.0); MEAN CORPUSCULAR VOLUME 94.6 fL (79-99); RED BLOOD CELL COUNT(AUTO) 4.45 MIL/uL (4.50-6.20); RED CELL DISTRIBUTION WIDTH 13.2 % (11.0-15.5); WHITE BLOOD COUNT (AUTO) 9.4 K/uL (4.8-10.8)
[2023-02-17 05:42] LABS: CREATININE 1.2 mg/dL (0.5-1.5); MAGNESIUM 2.3 mg/dL (1.80-2.40); POTASSIUM 4.6 mmol/L (3.5-5.1)
[2023-02-17] MEDS: POLYETHYLENE GLYCOL 3350 17 GM POWD.PACK PO SCH (08:38)
[2023-02-17] MEDS: FUROSEMIDE 20 MG TABLET PO SCH (08:38)
[2023-02-17] MEDS: MULTIVITAMIN WITH MINERALS TABLET PO SCH (08:38)
[2023-02-17] MEDS: DOXYCYCLINE HYCLATE 100 MG TABLET PO SCH ×2 (08:38→21:03)
[2023-02-17] MEDS: ENOXAPARIN SODIUM 30 MG/0.3 ML SQ SCH (08:38)
[2023-02-17] MEDS: CARVEDILOL 6.25 MG TABLET PO SCH ×2 (08:39→21:03)
[2023-02-17] MEDS: DEXAMETHASONE 4 MG TAB PO SCH (08:39)
[2023-02-17] MEDS: LOSARTAN 50 MG TABLET PO SCH (08:39)
[2023-02-17] MEDS ORDERED: LACTULOSE 20 GM/30 ML UDCUP PO SCH (17:00)
[2023-02-17] MEDS: ASPIRIN 81 MG EC TAB PO SCH (17:04)
[2023-02-17] MEDS: CEFTRIAXONE 1G VIAL IVPB SCH (21:02)
[2023-02-17] MEDS: FAMOTIDINE 20MG TAB PO SCH (21:09)
[2023-02-18] VITALS: BP 140/77; PULSE 64; RESP 22
[2023-02-18 04:00] VITALS: BP 142/84; PULSE 65; RESP 20
[2023-02-18 07:00] VITALS: O2SAT 95
[2023-02-18 08:00] VITALS: BP 150/87; PULSE 62; RESP 16
[2023-02-18] MEDS: FAMOTIDINE 20MG TAB PO SCH (09:12)
[2023-02-18] MEDS: DOXYCYCLINE HYCLATE 100 MG TABLET PO SCH (09:12)
[2023-02-18] MEDS: LOSARTAN 50 MG TABLET PO SCH (09:13)
[2023-02-18] MEDS: CARVEDILOL 6.25 MG TABLET PO SCH (09:13)
[2023-02-18] MEDS: FUROSEMIDE 20 MG TABLET PO SCH (09:13)
[2023-02-18] MEDS: DEXAMETHASONE 4 MG TAB PO SCH (09:13)
[2023-02-18] MEDS: MULTIVITAMIN WITH MINERALS TABLET PO SCH (09:13)
[2023-02-18] MEDS: ENOXAPARIN SODIUM 30 MG/0.3 ML SQ SCH (09:14)
[2023-02-18] MEDS: POLYETHYLENE GLYCOL 3350 17 GM POWD.PACK PO SCH (09:14)
[2023-02-18 12:00] VITALS: BP 143/72; PULSE 69; RESP 16
== END 2023-02-18 18:45 | DRG 871 ==
LOC: EDH 19:29 → EDHIP 23:49 → 4CH 02-14 00:17
PROVIDERS: ADMIT Internal Medicine Infectious Disease; ATTEND Internal Medicine Infectious Disease
DX: A41.9 Sepsis, unspecified organism (principal); J12.82 Pneumonia due to coronavirus disease 2019; J96.01 Acute respiratory failure with hypoxia; U07.1 COVID-19; J96.21 Acute and chronic respiratory failure with hypoxia; N17.9 Acute kidney failure, unspecified; I50.32 Chronic diastolic (congestive) heart failure; J44.1 Chronic obstructive pulmonary disease with (acute) exacerbation; J44.0 Chronic obstructive pulmonary disease with (acute) lower respiratory infection; E86.0 Dehydration; E66.01 Morbid (severe) obesity due to excess calories; Z68.35 Body mass index [BMI] 35.0-35.9, adult; G47.33 Obstructive sleep apnea (adult) (pediatric); E11.65 Type 2 diabetes mellitus with hyperglycemia; I34.0 Nonrheumatic mitral (valve) insufficiency; I27.20 Pulmonary hypertension, unspecified; E78.5 Hyperlipidemia, unspecified; I25.10 Atherosclerotic heart disease of native coronary artery without angina pectoris; I11.0 Hypertensive heart disease with heart failure; Z79.01 Long term (current) use of anticoagulants; Z82.49 Family history of ischemic heart disease and other diseases of the circulatory system; I25.2 Old myocardial infarction; Z83.3 Family history of diabetes mellitus; Z95.5 Presence of coronary angioplasty implant and graft
CPT/HCPCS: 36415; 36600; 70450; 71045; 71270; 80048; 80053; 82435; 82550; 82803; 82947; 83605; 83735; 83930; 84132; 84295; 84484; 85018; 85025; 85027; 87635; 87804; 93005; 94640; C9803; G0378; J0696; J1650; J2920; J8540

== ENCOUNTER → 2024-01-06 | Outpatient (CLI) | payer OTHER ==
[~2024-01-06] MED LIST changes: +FURO20TA4 PO; +LOSA50TA64 PO
[2024-01-06 12:10] LABS: BASOPHILS # (AUTO) 0.06 K/uL (0.00-0.20); BASOPHILS % (AUTO) 0.8 % (0.0-5.0); EOSINOPHILS # (AUTO) 0.07 K/uL (0.00-0.70); EOSINOPHILS % (AUTO) 0.9 % (0.0-8.0); HEMATOCRIT 45.1 % (42-54); IMMATURE GRANULOCYTE ABSOLUTE 0.03 K/uL (0-1); LYMPHOCYTES # (AUTO) 1.8 K/uL (1.0-4.8); LYMPHOCYTES % (AUTO) 24.6 % (21.0-51.0); MEAN CORPUSCULAR HEMOGLOBIN 30.3 pg (27.0-33.0); MEAN CORPUSCULAR HGB CONC 31.9 g/dL (32.0-36.0); MEAN CORPUSCULAR VOLUME 94.9 fL (79-99); MONOCYTES # (AUTO) 0.5 K/uL (0.1-1.0); MONOCYTES % (AUTO) 7.3 % (3.0-13.0); NEUTROPHILS # (AUTO) 4.9 K/uL (1.8-7.7); PLATELET COUNT (AUTO) 191 K/uL (130-400); RED BLOOD CELL COUNT(AUTO) 4.75 MIL/uL (4.50-6.20); WHITE BLOOD COUNT (AUTO) 7.4 K/uL (4.8-10.8)
[2024-01-06 12:29] LABS: ALBUMIN 3.6 g/dL (3.5-5.0); BILIRUBIN,TOTAL 0.4 mg/dL (0.2-1.0); CREATININE 1.3 mg/dL (0.5-1.3); POTASSIUM 4.7 mmol/L (3.5-5.1); TOTAL PROTEIN, SERUM 7.4 g/dL (6.0-8.3)
[2024-01-06 12:30] LABS: B-TYPE NATRIURETIC PEPTIDE 89 pg/mL (0-100)
== END | disposition home or self-care (01) ==
LOC: LAB 08:19
PROVIDERS: ATTEND Internal Medicine Cardiovascular Disease
DX: I25.2 Old myocardial infarction (principal); I50.22 Chronic systolic (congestive) heart failure
CPT/HCPCS: 36415; 80053; 80061; 83735; 83880; 85025